=== PATIENT | male | born 1955 | race Caucasian/White ===

== ENCOUNTER 2021-06-21 19:55 | Emergency (ER) | payer BC, OTHER ==
[2021-06-21 20:05] VITALS: BP 192/90; PULSE 105; TEMP 97.8; BMI 45.8
[2021-06-21] MEDS ORDERED: morphine SULFATE IMMEDIATE RELEASE 30 MG TAB PO ONE (20:11)
[2021-06-21] MEDS ORDERED: morphine SULFATE IMMEDIATE RELEASE 30 MG TAB ONE (21:01)
== END 2021-06-21 21:20 | disposition home or self-care (01) ==
LOC: FER 19:55
DX: S20.211A Contusion of right front wall of thorax, initial encounter (principal); W01.0XXA Fall on same level from slipping, tripping and stumbling without subsequent striking against object, initial encounter
CPT/HCPCS: 71101-TC-RT-FY; 93005; 99284-25